=== PATIENT | male | born 1935 | race Caucasian/White ===

== ENCOUNTER 2018-03-05 10:39 | Observation (INO) ==
--- NOTE | 2018-03-05 11:04 | ED ---
HPI General Chief Complaint: Chest Pain Stated Complaint: chest tightness-lt arm x 1hr Time Seen by Provider: 03/05/18 10:48 Source: patient and family Mode of arrival: ambulatory Limitations: no limitations History of Present Illness HPI narrative: Patient presents with substernal pressure 2 out of 10 of 1 hour duration prior to arrival. Patient takes one aspirin daily. Patient also has a history of diabetes hypercholesterolemia and also had stents to his lower extremities. Generally good health with no previous cardiac history. Chest pressure resolved on arrival to emergency department. Related Data Previous Rx's Medication Instructions Recorded cephalexin [Keflex] 500 mg PO Q6H 10 Days #40 cap 03/05/18 clindamycin HCl 300 mg PO Q6H 10 Days #40 cap 03/05/18 clindamycin HCl 300 mg PO Q6H 10 Days #40 cap 03/05/18 ibuprofen 800 mg PO Q8H #100 cap 03/05/18 Allergies Allergy/AdvReac Type Severity Reaction Status Date / Time diatrizoate meglumine Allergy Mild abnormal Unverified 03/05/18 11:54 labs/kidney gadobenic acid Allergy Mild abnormal Unverified 03/05/18 11:54 labs gadodiamide Allergy Mild abnormal Unverified 03/05/18 11:54 labs gadoteridol Allergy Mild abnormal Unverified 03/05/18 11:54 labs iodixanol Allergy Mild abnormal Unverified 03/05/18 11:54 labs iohexol Allergy Mild abnormal Unverified 03/05/18 11:54 lab Review of Systems ROS: all other systems reviewed are negative PMFSH History History Provided By: Patient and Family Member Medical History Medical History Afib (Acute) Bilateral cataracts (Acute) Bladder cancer (Acute) Diabetes (Acute) Social History Social History Substance History: Active Abuse Smoking Status: Former smoker How Often Do You Have a Drink Containing Alcohol: 2 to 3 times a week Recent Travel in [facility] within the Last 8 Weeks: No Recent Out of Country Travel within the Last 8 Weeks: No Exam Narrative Exam Narrative: GENERAL: Alert and oriented in no acute distress SKIN: Focused skin assessment warm/dry. HEAD: Atraumatic. Normocephalic. EYES: Pupils equal and round. No scleral icterus. No injection or drainage. ENT: No nasal bleeding or discharge. Mucous membranes pink and moist. NECK: Trachea midline. No JVD. CARDIOVASCULAR: Regular rate and rhythm. 3 out of 6 systolic murmur second interspace right sternal border. RESPIRATORY: No accessory muscle use. Clear to auscultation. Breath sounds equal bilaterally. Crepitant rales to both bases GASTROINTESTINAL: Abdomen soft, non-tender, nondistended. Hepatic and splenic margins not palpable. MUSCULOSKELETAL: No obvious deformities. No clubbing. No cyanosis. No edema. NEUROLOGICAL: Awake and alert. No obvious cranial nerve deficits. Motor grossly within normal limits. Normal speech. PSYCHIATRIC: Appropriate mood and affect; insight and judgment normal. Procedures Abscess I/D Site: other Side (if applicable): right Anesthetic used: with epi Technique: incised with #11 blade Amount of fluid expressed (mL): 5 Packing used?: iodoform Course Initial Documented Vital Signs Temperature 97.8 F 03/05/18 10:50 Pulse Rate 75 03/05/18 10:50 Respiratory Rate 20 03/05/18 10:50 Blood Pressure 176/83 H 03/05/18 10:50 Pulse Oximetry 98 03/05/18 10:50 Last Documented Vital Signs Temperature 97.8 F 03/05/18 10:50 Pulse Rate 65 03/05/18 12:50 Respiratory Rate 20 03/05/18 12:50 Blood Pressure 139/82 03/05/18 12:50 Pulse Oximetry 96 03/05/18 12:50 Critical Care Time Critical Care Time: No Medical Decision Making MDM Narrative Medical decision making narrative: Patient presents with bug bite and secondary abscess and cellulitis to right anterior chest. No adenitis. Ultrasound shows palpable abscess that was I indeed. Patient refuses hospitalization but will be taken care of on an outpatient basis. With follow-up in 2 days with repack with iodoform at that time. There is a zone of inflammation around it but no lymphangitis. Medical Screen Exam Complete: Yes Emergency Medical Condition: Yes Medical Records Medical records reviewed: Yes I reviewed the patient's medical records. Lab Data Result diagrams: 03/05/18 11:20 03/05/18 11:20 Lab Results 03/05/18 03/05/18 03/05/18 Range/Units 11:20 11:20 11:20 CBC w Diff Auto diff final WBC 5.1 (4.0-11.0) th/mm3 RBC 4.27 L (4.50-5.90) mil/mm3 Hgb 14.2 (13.0-17.0) gm/dL Hct 41.9 (39.0-51.0) % MCV 98.3 (80.0-100.0) fL MCH 33.2 (27.0-34.0) pg MCHC 33.8 (32.0-36.0) % RDW 13.6 (11.6-17.2) % Plt Count 207 (150-450) th/mm3 MPV 8.3 (7.0-11.0) fL Neut % (Auto) 62.0 (16.0-70.0) % Lymph % (Auto) 23.7 (9.0-44.0) % [place] % (Auto) 10.7 H (0.0-8.0) % Eos % (Auto) 2.5 (0.0-4.0) % Baso % (Auto) 1.1 (0.0-2.0) % Neut # (Auto) 3.2 (1.8-7.7) th/mm3 Lymph # (Auto) 1.2 (1.0-4.8) th/mm3 [place] # (Auto) 0.5 (0.0-0.9) th/mm3 Eos # (Auto) 0.1 (0.0-0.4) th/mm3 Baso # (Auto) 0.1 (0.0-0.2) th/mm3 WBC Differential . Differential Comment . Sodium 139 (136-145) meq/L Potassium 4.6 (3.5-5.1) meq/L Chloride 103 (98-107) meq/L Carbon Dioxide 26.1 (21.0-32.0) meq/L Anion Gap 10 (5-15) meq/L BUN 27 H (7-18) mg/dL Creatinine 1.50 H (0.60-1.30) mg/dL Estimated GFR 45 L (>89) mL/min Random Glucose 256 H (74-106) mg/dL Calcium 8.0 L (8.5-10.1) mg/dL Total Creatine Kinase 146 (39-308) U/L CK-MB (CK-2) 2.0 (0.5-3.6) ng/mL Troponin I Less than 0.02 L (0.02-0.05) ng/mL B-Natriuretic Peptide 163 H (0-100) pg/mL Imaging Data Radiologist's impression: Chest X-Ray 03/05/18 10:57 CONCLUSION: Negative examination. Discharge Plan Discharge Disposition Patient Disposition: 01 Discharge Home Discharge Condition Condition: Good Discharge Order Discharge Orders: Discharge Order (Routine); Ordered 03/05/18 Ordered By: Gabriel Issa Discharge Details Diagnosis: Abscess, Cellulitis Physicians Team ED Provider: Gabriel Issa Primary Care Provider: UNKNOWN, Rxs /Orders / Referrals /Forms Prescriptions: New clindamycin HCl 300 mg capsule 300 mg PO Q6H 10 Days Qty: 40 RF: 0 clindamycin HCl 300 mg capsule 300 mg PO Q6H 10 Days Qty: 40 RF: 0 cephalexin [Keflex] 500 mg capsule 500 mg PO Q6H 10 Days Qty: 40 RF: 0 ibuprofen 200 mg capsule 800 mg PO Q8H Qty: 100 RF: 0 Discharge Instructions Patient Printed Instructions: Cellulitis (ED), Abscess (ED) Additional Instructions: Return to emergency department in 2 days for recheck and potential repacking of wound Discharge Interventions Interventions: Vital Signs Last Done: 03/05/18 12:50 Status ED Status: Ready for Discharge
--- NOTE | 2018-03-05 11:17 | XR ---
EXAM DATE: 03/05/2018 11:13 AM EST AGE/SEX: 82 years / Male INDICATIONS: . Chest pain today. CLINICAL DATA: This is the patient's initial encounter. Patient reports that signs and symptoms have been present for 1 day and indicates a pain score of 5/10. MEDICAL/SURGICAL HISTORY: Hypertension. Afib. Bladder cancer. . Removal of bladder cancer. COMPARISON: [facility], CHEST SINGLE AP, 03/28/2015. . FINDINGS: PA and lateral views of the chest demonstrate the lungs to be symmetrically aerated without evidence of mass, infiltrate or effusion. The cardiomediastinal contours are unremarkable. Osseous structures are intact. CONCLUSION: Negative examination. Electronically signed by: Jean Paul Johnson MD 03/05/2018 11:16 AM EST
[2018-03-05 11:24] LABS: Baso # (Auto) 0.1 th/mm3 (0.0-0.2); Baso % (Auto) 1.1 % (0.0-2.0); Eos # (Auto) 0.1 th/mm3 (0.0-0.4); Eos % (Auto) 2.5 % (0.0-4.0); Hematocrit 41.9 % (39.0-51.0); Hemoglobin 14.2 gm/dL (13.0-17.0); Lymph # (Auto) 1.2 th/mm3 (1.0-4.8); Lymph % (Auto) 23.7 % (9.0-44.0); Mean Corpuscular HGB Conc 33.8 % (32.0-36.0); Mean Corpuscular Hemoglobin 33.2 pg (27.0-34.0); Mean Corpuscular Volume 98.3 fL (80.0-100.0); Mean Platelet Volume 8.3 fL (7.0-11.0); Mono # (Auto) 0.5 th/mm3 (0.0-0.9); Mono % (Auto) 10.7 % (0.0-8.0); Neut # (Auto) 3.2 th/mm3 (1.8-7.7); Platelet Count 207 th/mm3 (150-450); Red Blood Count 4.27 mil/mm3 (4.50-5.90); Red Cell Distribution Width 13.6 % (11.6-17.2); White Blood Count 5.1 th/mm3 (4.0-11.0)
[2018-03-05 11:34] LABS: Chloride 103 meq/L (98-107); Potassium 4.6 meq/L (3.5-5.1); Sodium 139 meq/L (136-145)
[2018-03-05 11:37] LABS: Anion Gap 10 meq/L (5-15); Blood Urea Nitrogen 27 mg/dL (7-18); Carbon Dioxide 26.1 meq/L (21.0-32.0); Glucose,Random 256 mg/dL (74-106)
[2018-03-05 11:41] LABS: Glomerular Filtration Rate 45 mL/min (>89)
[2018-03-05 11:44] LABS: Creatine Kinase 146 U/L (39-308)
[2018-03-05] MEDS ORDERED: Dextrose 50% in Water 50 ML Vial IV.PUSH PRN (15:18)
--- NOTE | 2018-03-05 15:20 | P.HP ---
History of Present Illness Primary Care Physician: UNKNOWN Chief Complaint: Chest pain History of Present Illness: 82-year-old male with known history of hypertension, atrial fibrillation, hyperlipidemia, diabetes, peripheral vascular disease who presented to the hospital for evaluation of chest pain. Patient states that he is normal state of health until 9 AM this morning when he was sitting down and not exerting himself he developed a pain all over his anterior chest which she states was a 3/10 on a pain scale. He denied any radiation to neck, back, shoulder, arm. Denied any nausea, vomiting, shortness of breath, dyspnea, lightheadedness, dizziness. He did have some mild diaphoresis. The pain lasted for approximately 30 minutes and he decided come to the ER for evaluation. On his way to the hospital his pain subsided. Patient had workup done in emergency department and had a negative workup. It was recommended by the ER physician that the patient be observed in the chest pain center for further evaluation and management. Patient does have history of atrial fibrillation status post ablation. Patient denies any recent cardiac workup, precision assembly inspector evaluation or stress test. - Diagnosis (1) Chest pain Review of Systems All other systems reviewed negative except as stated in HPI Constitutional: Reports excessive sweating Cardiovascular: Reports chest pain PMFSH - History History Provided By: Patient - Medical History Medical History: Medical History (Last Updated 03/05/18 @ 15:13 by CASTRO Tran) Afib Bladder cancer Diabetes History of tobacco use Hyperlipidemia Hypertension Peripheral vascular disease - Surgical History Surgical History: Surgical History (Last Updated 03/05/18 @ 15:13 by CASTRO Tran) History of cataract surgery - Family History Family History: Family History (Last Updated 03/05/18 @ 15:14 by CASTRO Tran) Father Family history of stroke - Tobacco History Second Hand Smoke Exposure: No Tobacco Use In Past 30 Days: No Smoking Status: Former smoker Tobacco Type: Cigarettes - Alcohol History How Often Do You Have a Drink Containing Alcohol: 4 or more times a week - Substance Use History Substance History: No History of Abuse - Substance Use Type Alcohol Status: Active Route Used: By Mouth Frequency: daily 2-3 drinks - Travel History Recent Travel in the [place] Within the Last 8 Weeks: No Recent Travel Out of the Country Within the Last 8 Weeks: No - Immunization History Tetanus Immunization: <5 Years Medications and Allergies Active Medications: Active Medications Sodium Chloride (Ns Flush) 2 ml IV.FLUSH BID FELICIA Sodium Chloride (Ns Flush) 2 ml IV.FLUSH PRN PRN PRN Reason: FLUSH AFTER USING IV ACCESS Allergies Allergy/AdvReac Type Severity Reaction Status Date / Time diatrizoate meglumine Allergy Mild abnormal Verified 03/05/18 16:01 labs/kidney gadobenic acid Allergy Mild abnormal Verified 03/05/18 16:01 labs gadodiamide Allergy Mild abnormal Verified 03/05/18 16:01 labs gadoteridol Allergy Mild abnormal Verified 03/05/18 16:01 labs iodixanol Allergy Mild abnormal Verified 03/05/18 16:01 labs iohexol Allergy Mild abnormal Verified 03/05/18 16:01 lab Home Medications Medication Instructions Recorded Confirmed Type acetaminophen [Tylenol] 325 mg PO Q6H PRN 03/05/18 03/05/18 History atorvastatin 40 mg PO HS 03/05/18 03/05/18 History lisinopril 5 mg PO DAILY 03/05/18 03/05/18 History metformin 500 mg PO QPM 03/05/18 03/05/18 History metoprolol succinate 50 mg PO HS 03/05/18 03/05/18 History metoprolol succinate 100 mg PO DAILY 03/05/18 03/05/18 History Exam Vital signs: Vital Signs 03/05/18 10:50 03/05/18 10:57 03/05/18 11:24 Temperature 97.8 F Pulse Rate 75 72 64 Respiratory Rate 20 16 Blood Pressure 176/83 H 133/64 Pulse Oximetry 98 98 96 03/05/18 12:00 03/05/18 12:50 03/05/18 14:34 Temperature Pulse Rate 69 65 61 Respiratory Rate 17 20 20 Blood Pressure 122/66 139/82 151/84 H Pulse Oximetry 97 96 99 Intake & Output 03/04/18 03/05/18 03/05/18 18:59 06:59 18:59 Weight 87.9 kg Other: Weight On Admission 87.9 kg Narrative: GENERAL: Well-developed, well-nourished, in no acute distress. alert and orientated HEENT: Head is normocephalic without any lesions or masses noted. Facial features are symmetric. Eyes: Pupils equal round reactive to light. Extraocular muscles are intact. Conjunctivae were clear. Oropharyngeal: Pharynx without any erythema edema. Tongue is midline without deviation. Buccal mucosa is moist without any masses or lesions NECK: Supple without any masses. Trachea midline no deviation. No JVD, no bruits are appreciated CARDIAC: Regular rhythm, regular rate. S1/S2 are heard. No murmurs gallops or rubs. LUNGS: Clear to auscultation bilaterally. No wheeze, rhonchi or rales. No use of accessory muscles on inspiration or expiration. ABDOMEN: Soft, nontender. Nondistended. Bowel sounds heard in all 4 quadrants. No organomegaly or masses. Negative rebound, negative guarding EXTREMITIES: No edema, pulses are equal bilaterally. No cyanosis or clubbing NEUROLOGY: Mood and affect appear appropriate. Cranial nerves II through XII grossly intact. Muscle strength 5/5 in upper and lower extremities bilaterally. Deep tendon reflexes are 2+ in upper and lower extremities bilaterally. Results - Labs CBC & Chem 7: 03/05/18 11:20 03/06/18 11:36 Labs: Laboratory Results - last 24 hr 03/05/18 03/05/18 03/05/18 11:20 11:20 11:20 CBC w Diff Auto diff final WBC 5.1 RBC 4.27 L Hgb 14.2 Hct 41.9 MCV 98.3 MCH 33.2 MCHC 33.8 RDW 13.6 Plt Count 207 MPV 8.3 Neut % (Auto) 62.0 Lymph % (Auto) 23.7 [place] % (Auto) 10.7 H Eos % (Auto) 2.5 Baso % (Auto) 1.1 Neut # (Auto) 3.2 Lymph # (Auto) 1.2 [place] # (Auto) 0.5 Eos # (Auto) 0.1 Baso # (Auto) 0.1 WBC Differential . Differential Comment . Sodium 139 Potassium 4.6 Chloride 103 Carbon Dioxide 26.1 Anion Gap 10 BUN 27 H Creatinine 1.50 H Estimated GFR 45 L Random Glucose 256 H Calcium 8.0 L Total Creatine Kinase 146 CK-MB (CK-2) 2.0 Troponin I Less than 0.02 L B-Natriuretic Peptide 163 H - Imaging Impressions Chest X-Ray 03/05/18 10:57 CONCLUSION: Negative examination. Caprini VTE Risk Assessment Caprini VTE Risk Assessment: Moderate/High Risk (score >= 2) Caprini Risk Assessment Model: Point Value = 1 Point Value = 2 Point Value = 3 Point Value = 5 Age 41-60 Minor surgery BMI > 25 kg/m2 Swollen legs Varicose veins or History of unexplained or recurrent spontaneous Oral contraceptives or hormone replacement Sepsis (< 1 month) Serious lung disease, including pneumonia (< 1 month) Abnormal pulmonary function Acute myocardial infarction Congestive heart failure (< 1 month) History of inflammatory bowel disease Medical patient at bed rest Age 61-74 Arthroscopic surgery Major open surgery (> 45 min) Laparoscopic surgery (> 45 min) Malignancy Confined to bed (> 72 hours) Immobilizing plaster cast Central venous access Age >= 75 History of VTE Family history of VTE Factor V Leiden Prothrombin [id number] Lupus anticoagulant Anticardiolipin antibodies Elevated serum homocysteine Heparin-induced thrombocytopenia Other congenital or acquired thrombophilia Stroke (< 1 month) Elective arthroplasty Hip, pelvis, or leg fracture Acute spinal cord injury (< 1 month) Prophylaxis Regimen: Total Risk Factor Score Risk Level Prophylaxis Regimen 0-1 Low Early ambulation 2 Moderate Order ONE of the following: *Sequential Compression Device (SCD) *Heparin 5000 units SQ BID 3-4 Higher Order ONE of the following medications: *Heparin 5000 units SQ TID *Enoxaparin/Lovenox 40 mg SQ daily (WT < 150 kg, CrCl > 30 mL/min) *Enoxaparin/Lovenox 30 mg SQ daily (WT < 150 kg, CrCl > 10-29 mL/min) *Enoxaparin/Lovenox 30 mg SQ BID (WT < 150 kg, CrCl > 30 mL/min) AND/OR *Sequential Compression Device (SCD) 5 or more Highest Order ONE of the following medications: *Heparin 5000 units SQ TID (Preferred with Epidurals) *Enoxaparin/Lovenox 40 mg SQ daily (WT < 150 kg, CrCl > 30 mL/min) *Enoxaparin/Lovenox 30 mg SQ daily (WT < 150 kg, CrCl > 10-29 mL/min) *Enoxaparin/Lovenox 30 mg SQ BID (WT < 150 kg, CrCl > 30 mL/min) AND *Sequential Compression Device (SCD) Assessment and Plan - Assessment (1) Chest pain Code(s): R07.9 - Chest pain, unspecified Status: Acute - Plan Chest pain -Patient presented with risk factors to include hypertension, hyperlipidemia, peripheral vascular disease, diabetes, history of tobacco use -We will continue to rule the patient out for acute coronary event with serial cardiac enzymes -Initial EKG was performed with showed sinus rhythm without any acute abnormalities. We will continue to trend EKGs -Second set of troponins were elevated at 0.19 -Cardiac consultation was requested -Patient maximized on cardiac protection with aspirin, beta-cindy, nitroglycerin, statin -Obtain lipid panel -Further recommendations by precision assembly inspector Hypertension, hyperlipidemia -Continue monitor blood pressure -Nursing staff to obtain home medication list Diabetes -Accu-Cheks with sliding scale insulin DVT prevention -Sequential compression devices
[2018-03-05] MEDS ORDERED: Morphine Inj 4 MG/ML Vial IV.PUSH PRN (16:26)
[2018-03-05] MEDS ORDERED: Acetaminophen 500 MG Tablet PO PRN (16:26)
[2018-03-05 17:17] LABS: Troponin I 0.19 ng/mL (0.02-0.05)
[2018-03-05] MEDS: Insulin NovoLOG Aspart Correctional Sugar Inj SQ SCH ×2 (17:31→20:07)
[2018-03-05] MEDS: Sod Chloride 0.9% Inj 1,000 ML IV.SIG SCH (18:31)
[2018-03-05 20:25] LABS: Troponin I 0.36 ng/mL (0.02-0.05)
[2018-03-06] MEDS: Sod Chloride 0.9% Inj 1,000 ML IV.SIG SCH (04:59)
[2018-03-06] MEDS ORDERED: Aspirin 325 MG Tablet PO SCH ×2 (06:00→09:00)
[2018-03-06] MEDS ORDERED: Lisinopril 5 MG Tablet PO SCH ×2 (06:00→09:00)
[2018-03-06] MEDS ORDERED: Heparin/NS PF Inj 1,500 ML ONE (07:05)
[2018-03-06] MEDS ORDERED: Heparin 10,000 UNITS/10 ML Vial (for IV use) ONE (07:05)
[2018-03-06] MEDS ORDERED: MethylPREDNISolone Sod Succinate Inj 125 MG/2 ML Vial ONE (07:07)
[2018-03-06] MEDS ORDERED: Famotidine PF Inj 20 MG/2 ML Vial ONE (07:07)
[2018-03-06] MEDS ORDERED: fentaNYL Citrate Inj 100 MCG/2 ML Ampul ONE (07:29)
[2018-03-06] MEDS ORDERED: Tirofiban Inj 12,500 MCG/250 ML PLAST..BAG ONE (08:20)
[2018-03-06] MEDS ORDERED: TIROFIBAN BOLUS IV.SIG ONE (08:37)
[2018-03-06] MEDS ORDERED: Misc Info for Pharmacy OTHER STA (08:37)
--- NOTE | 2018-03-06 08:52 | CATHPROC ---
DataRPM HIS Report Study Information Study Number Admission Scheduled Start Study Start [id number] Mar 05 2018 1:36PM 03/06/2018 Mar 06 2018 6:40AM [place] [facility] Cardiac Catheterization Admit Source Facility Department Emergency department [facility] [employer] [facility] Physician and Clinical Staff Initial Denny Pak Supervisor Paint Department Tammy Robles RN Supervisor Paint Department Jose HaydenRN Recorder Yuly So RCIS Scrub Hostkuldip, Jesse,RT(R) Procedures Performed Procedure Location (Site) Vessel Name Coronary Angiograms LCA Left Coronary Coronary Angiograms RCA Right Coronary LV Gram-hand inj. LV LV Ventricle PTCA CIRC Mid CIRC Wire insertion Fem Art (right) Femoral Art Equipment Time Lute Packer Or Applier Description Size Mfg Part Number Used/Scraped TRANSDUCER, TRMANN [id number] 07:00 NOVA VILLANUEVA * Used W/STOCKCOCK *[id number] 07:45 [employer] WIRE, CHOICE PT 182CM 182CM Used *[id number] WIRE, CHOICE PT EX. SUPPORT [id number] 07:52 [employer] 180CM Used 182CM *[id number] [id number] *[id number] 538-422 *[id number] [id number] *[id number] *[id number] 07:00 [employer] BLANKET,WARM AIR CCL * Used *[id number] 07:00 [employer] PACK, CCL CUSTOM * Used *[id number] 07:00 [employer] PACER PEN, SKIN DUAL W/ RULER * Used *[id number] BALLOON, 2.5 X 12MM NC [id number] 08:13 [employer] 12MM Used EUPHORA *[id number] 08:01 [employer] BALLOON, 2.5 X 6MM EUPHORA 6MM Used *[id number] 08:13 [employer] MEDICAL 30 MIGUEL INDEFLATOR Used *[id number] 07:00 [employer] MEDICAL SHEATH, FR6.5 PRELUDE 11CM FR 6.5 038ACT Used *[id number] 07:00 [employer] MEDICAL WIRE, 3MMJ .035 180CM 180CM Used *[id number] 07:00 NAMIC MANIFOLD, 4 PORT * Used *[id number] 07:00 [employer] OMNIPAQUE, 350 MG, 150ML 150ML [id number] Used Equipment Model, Serial, Lot Number and Expiration Data Description Model Number Serial Number Lot Number Expiration Date WIRE, CHOICE PT 182CM [id number] 10-23-2019 WIRE, CHOICE PT EX. SUPPORT [id number] 12-10-2018 182CM History: Current Medications Medication Dosage/Unit Route Frequency Last Date/Time Taken ASA Statins (any) Beta Maddy History: Allergies Allergy Reaction iohexol abnormal lab diatrizoate meglumine abnormal labs/kidney gadoteridol abnormal labs gadodiamide abnormal labs iodixanol abnormal labs gadobenic acid abnormal labs History: Risk Factors Family History of Hypertension Dyslipidemia Previous MD Previous Heart Failure Premature CAD Yes Yes No No No Prior Valve Prior PCI Prior PCIDate Prior CABG Surgery No Yes 04/15/2013 No Cerebrovascular Peripheral Artery Chronic Lung On Dialysis Diabetes Diabetes Therapy Disease Disease Disease No No No No Yes Oral History: Stress Tests Stress or Imaging Studies Performed No History: MD/CV Data Previous Cath Date 04/15/2013 History: Other Current Smoker Method Quit Packs a Day Years Used Pack Years No Cigarettes 40 Years Ago 1 10 10 Labs Hgb (g/dl) Hct (%) WBC (l/cumm) Platelets (thousands) 11.60-17.00 35.00-51.00 4.00-11.00 150.00-450.00 14.0 41 5.1 207 Glucose (mg/dl) BUN (mg/dl) Creatinine (mg/dl) BUN:Creatinine (1:x) 74.00-106.00 7.00-18.00 0.50-1.30 10.00-20.00 256 27 1.5 18 Na (meq/l) K (meq/l) 136.00-145.00 3.50-5.10 139 4.6 Troponin I (ng/ml) CPK-MB (ng/ML) 0.02-0.05 0.50-3.60 0.36 Not Drawn Medication Medication Total Dose (Bolus/Oral) Medication Total Dosage/Unit AGGRASTAT BOLUS 25 mL (Bolus) BENADRYL 50 mg EFFIENT 60 mg FENTANYL 25 mcg HEPARIN 6300 units PEPCID 20 mg SOLU-MEDROL 125 mg VERSED 1 mg Medications (Bolus/Oral) Medication Time Given Dosage/Unit Administered By Reason SOLU-MEDROL 03/06/2018 7:09:19 AM 125 mg Mrache, Tammy Patient arrived on 125 mg SOLU-MEDROL given by Tammy Robles RN via Peripheral IV. BENADRYL 03/06/2018 7:11:56 AM 50 mg Tammy Robles Patient arrived on 50 mg BENADRYL given by Tammy Robles RN via Peripheral IV. PEPCID 03/06/2018 7:12:17 AM 20 mg Tammy Robles Patient arrived on 20 mg PEPCID given by Tammy Robles RN. VERSED 03/06/2018 7:32:34 AM 1 mg Tammy Robles Patient arrived on 1 mg VERSED given by Tammy Robles RN via Peripheral IV. FENTANYL 03/06/2018 7:32:40 AM 25 mcg Jose Hayden Patient arrived on 25 mcg FENTANYL given by Jose Hayden RN via Peripheral IV. HEPARIN 03/06/2018 7:45:22 AM 6300 units Jose Hayden Patient arrived on 6300 units HEPARIN given by Jose Hayden RN via Peripheral IV. AGGRASTAT BOLUS 03/06/2018 8:24:23 AM 25 mL (Bolus) Jose Hayden 25 mL (Bolus) AGGRASTAT BOLUS given in lab by Jose Hayden RN via Peripheral IV. Using [Solution Nam e]. EFFIENT 03/06/2018 8:36:45 AM 60 mg Jose Hayden 60 mg EFFIENT given in lab by Jose Hayden RN via Oral. Medication (Drip) Medication Time Given Dosage/Unit Concentration/Unit Diluent (ml) Solution AGGRASTAT DRIP 03/06/2018 8:26:02 AM 0.124 mcg/kg/min 12.5 mg 250 NaCl .9 0.124 mcg/kg/min AGGRASTAT DRIP given in lab by Jose Hayden RN via Peripheral IV. Pump/Drip Flow = 13.4 ml/hr using NaCl .9 with a concentration of 12.5 mg in 250 ml. IV Solutions 03/06/2018 7:06:25 AM 50 mL (IV) 1000 NaCl .9 Patient arrived on IV Solutions via Peripheral IV. Pump/Drip Flow using NaCl .9. Initial Case Assessment Cardiovascular HR NIBP Chest Pain 61 169/87 0 Edema Present Skin color Skin None Normal Warm Dry Circulatory - Right Pulses Dorsalis Pedis Femoral 3 3 Scale (0,1,2,3,4,d) Circulatory - Left Pulses Dorsalis Pedis Femoral 3 3 Scale (0,1,2,3,4,d) Neurological State Oriented to time-place- Alert Moves all extremities person Respiration - General Respiration Rate (B/min) 12 Chronological Log Time Study Chronological Log 6:58:07 Patient arrived via Bed. 6:58:09 Patient Name, D.O.B, / Armband Verified By R.N. 6:58:11 Consent signed by the physician and the patient and verified by the [facility] [employer] [facility] staff. 6:58:14 Patient has been NPO for More than 6Hrs. 6:58:15 Skin Breakdown- none 7:05:52 A # 20 IV was noted in the Antecubital (left). Grade = 0 Vitals capture started with the following parameters, Patient=Adult, Interval=5 min, Initial Pr rijfvk=833 mmHg, 7:06:13 Deflation Rate=5 mmHg, Cuff placed on Left Arm 7:06:25 Patient arrived on IV Solutions via Peripheral IV. Pump/Drip Flow using NaCl .9. 7:07:35 HR=60 bpm, TENI=000/87 mmhg, SpO2=94.0 %, Resp=12 B/min, Pain=0, Seble=10, Valenzuela=2 Assessment: Initial Case, HR=61 BPM, SHVC=946/87 mmhg, Chest Pain=0, Edema=None, Color=Normal, Skin = Warm, Dry Right Pulses: Isaiah Ped=3, Femoral=3 7:08:23 Left Pulses: Isaiah Ped=3, Femoral=3 Neurological: State=Alert, Ox3, WILSON Respiration: Resp=12 B/min 7:09:19 Patient arrived on 125 mg SOLU-MEDROL given by Tammy Robles, LOGAN via Peripheral IV. 7:11:56 Patient arrived on 50 mg BENADRYL given by Tammy Robles, LOGAN via Peripheral IV. 7:12:17 Patient arrived on 20 mg PEPCID given by Tammy Robles, LOGAN. 7:12:28 HR=63 bpm, SHVV=070/91 mmhg, SpO2=97.0 %, Resp=15 B/min, Pain=0, Seble=10, Valenzuela=2 7:12:52 Reference ECG taken 7:13:42 Right groin prepped with 2% chlorhexidine, and draped after a 3 min. waiting time. 7:17:00 HR=63 bpm, IFAE=457/91 mmhg, SpO2=99.0 %, Resp=13 B/min, Pain=0, Seble=10, Valenzuela=2 7:21:06 Pressure channel 1 zeroed. 7:22:05 HR=66 bpm, QUUI=813/84 mmhg, SpO2=95.0 %, Resp=16 B/min, Pain=0, Seble=10, Valenzuela=2 7:27:00 HR=61 bpm, NGJI=328/89 mmhg, SpO2=95 %, Resp=16 B/min, Pain=0, Seble=10, Valenzuela=2 7:28:33 MD arrived. 7:31:57 HR=62 bpm, ZEZZ=563/91 mmhg, SpO2=95.0 %, Resp=17 B/min, Pain=0, Seble=10, Valenzuela=2 7:32:10 Case Start Time Out. Correct patient, correct procedure, correct physician, labs, allergies, and equipment verified with civil laboratory technician 7:32:11 team present. Fire risk assesment completed (see hard stop sheet for coding). Time Out Concu rred by MD and individual staff in procedure. 7:32:34 Patient arrived on 1 mg VERSED given by Tammy Robles, RN via Peripheral IV. 7:32:40 Patient arrived on 25 mcg FENTANYL given by Jose Hayden, RN via Peripheral IV. 7:33:55 Access site was Right Femoral Artery. 7:34:12 A SHEATH, FR6.5 PRELUDE 11CM FR 6.5 was advanced into the Fem Art (right) using the ~TECHNIQ UE~ technique. A JR 4.0 INFINITI CATHETER FR 4 was advanced over a wire. OMNIPAQUE, 350 MG, 150ML 150ML was use d for 7:34:33 injections. 7:34:41 A WIRE, 3MMJ .035 180CM 180CM was inserted via Fem Art (right). 7:34:46 Wire removed Recorded Pressure: LV, HR=62, Condition=Condition 1 7:35:56 (Left Ventricle) LV 194/9/28 7:36:20 The LV was manually injected with 10 cc's and visualized. OMNIPAQUE, 350 MG, 150ML 150ML use d. Recorded Pressure: LV, Ao, HR=63, Condition=Condition 1 7:36:29 (Left Ventricle) LV ?/?/?, (Aorta) Ao 183/84/125 7:36:48 The RCA was injected and visualized at various angles. OMNIPAQUE, 350 MG, 150ML 150ML used. 7:37:00 HR=63 bpm, WTNI=427/88 mmhg, SpO2=96.0 %, Resp=13 B/min, Pain=0, Seble=10, Valenzuela=2 Recorded Pressure: Ao, HR=63, Condition=Condition 1 7:37:13 (Aorta) Ao 165/82/115 After removing the current catheter a JL 5.0 INFINITI CATHETER FR 4 was advanced over a WIRE, 3M MJ .035 180CM 7:37:56 180CM. 7:39:42 The LCA was injected and visualized at various angles. OMNIPAQUE, 350 MG, 150ML 150ML used. 7:41:59 HR=65 bpm, QYSS=398/88 mmhg, SpO2=92.0 %, Resp=16 B/min, Pain=0, Seble=10, Valenzuela=2 After removing the current catheter a XB 4.5 GUIDE CATHETER FR 6 was advanced over a WIRE, 3MMJ .035 180CM 7:44:21 180CM. 7:45:22 Patient arrived on 6300 units HEPARIN given by Jose Hayden RN via Peripheral IV. 7:47:03 HR=65 bpm, YTBX=983/86 mmhg, SpO2=95.0 %, Resp=15 B/min, Pain=0, Seble=10, Valenzuela=2 7:48:00 A WIRE, CHOICE PT 182CM 182CM was inserted via Fem Art (right). 7:51:15 Interventional wire has crossed the lesion 7:51:27 Activated Clotting Time Drawn 7:52:02 HR=65 bpm, RUYW=041/85 mmhg, SpO2=94.0 %, Resp=19 B/min, Pain=0, Seble=10, Valenzuela=2 7:53:21 A WIRE, CHOICE PT EX. SUPPORT 182CM 180CM was inserted via Fem Art (right). FOR ADDITIONAL S UPPORT 7:57:01 HR=61 bpm, OAEV=843/82 mmhg, SpO2=96.0 %, Resp=13 B/min, Pain=0, Seble=10, Valenzuela=2 7:57:31 ACT (Normal Range 90-180) = 337 8:02:04 HR=60 bpm, JYGZ=908/89 mmhg, SpO2=95.0 %, Resp=13 B/min, Pain=0, Seble=10, Valenzuela=2 8:02:18 Wire removed PT FLOPPY 8:04:40 A BALLOON, 2.5 X 6MM EUPHORA 6MM was inserted over WIRE, CHOICE PT 182CM 182CM via the CIRC Mid. 8:07:05 HR=59 bpm, JXIY=673/87 mmhg, SpO2=94.0 %, Resp=16 B/min, Pain=0, Seble=10, Valenzuela=2 8:12:04 HR=60 bpm, FROM=918/89 mmhg, SpO2=94.0 %, Resp=16 B/min, Pain=0, Seble=10, Valenzuela=2 A BALLOON, 2.5 X 6MM EUPHORA 6MM over a WIRE, CHOICE PT 182CM 182CM in the CIRC Mid was inflate d using a 8:12:23 30 MIGUEL INDEFLATOR at 8 miguel for 20 sec. 8:13:10 Balloon Removed. 8:15:30 A BALLOON, 2.5 X 12MM NC EUPHORA 12MM was inserted over WIRE, CHOICE PT 182CM 182CM via the CIRC Mid. A BALLOON, 2.5 X 12MM NC EUPHORA 12MM over a WIRE, CHOICE PT 182CM 182CM in the CIRC Mid was in flated 8:16:24 using a 30 MIGUEL INDEFLATOR at 8 miguel for 15 sec. A BALLOON, 2.5 X 12MM NC EUPHORA 12MM over a WIRE, CHOICE PT 182CM 182CM in the CIRC Mid was in flated 8:16:43 using a 30 MIGUEL INDEFLATOR at 15 miguel for 15 sec. 8:17:07 HR=60 bpm, NUMP=714/89 mmhg, SpO2=96.0 %, Resp=13 B/min, Pain=0, Seble=10, Valenzuela=2 8:19:21 Balloon Removed. 8:19:57 Case End (Physician broke scrub) 8:20:54 In the Fem Art (right) the SHEATH, FR6.5 PRELUDE 11CM FR 6.[address] by Jesse Acharya RT(R). 8:22:10 HR=63 bpm, HQOR=061/96 mmhg, SpO2=96.0 %, Resp=12 B/min, Pain=0, Seble=10, Valenzuela=2 8:22:55 Sterile dressing applied to site 8:22:57 No case complications noted. 8:23:06 Bedside Report will be given. 8:23:15 A Left and Right Heart Cath was performed. 8:24:23 25 mL (Bolus) AGGRASTAT BOLUS given in lab by Jose Hayden RN via Peripheral IV. Using [So lution Name]. 0.124 mcg/kg/min AGGRASTAT DRIP given in lab by Jose Hayden RN via Peripheral IV. Pump/Drip F low = 13.4 ml/hr 8:26:02 using NaCl .9 with a concentration of 12.5 mg in 250 ml. 8:27:09 HR=62 bpm, JJYN=035/95 mmhg, SpO2=95.0 %, Resp=13 B/min, Pain=0, Seble=10, Valenzuela=2 8:28:05 Vitals capture stopped. 8:28:40 ACT (Normal Range 90-180) = 310 8:36:45 60 mg EFFIENT given in lab by Jose Hayden RN via Oral. 8:40:03 Patient moved to [facility] End Study - Contrast Media Used In Study Contrast Total Opened (mL) Total Used (mL) Total Wasted (mL) Omnipaque 200 200 0 End Study - Maximum Contrast Load Max Contrast Load (mL) 298.9 End Study - Radiation Exposure Fluoro Time (minutes) 22.6 End Study - Patient Disposition Complications Transferred To Interventional Outcome No Telemetry Bed successful
[2018-03-06] MEDS ORDERED: Tirofiban Inj 12,500 MCG/250 ML PLAST..BAG IV.CONT SCH (09:00)
--- NOTE | 2018-03-06 09:22 | MA ---
cc: Denny Bansal MD DATE: 03/06/2018 PROCEDURE PERFORMED: Left heart catheterization, left heart coronary angiography, percutaneous transluminal PTCA coronary angioplasty of mid left circumflex vessel. INDICATION: Non-STEMI, coronary artery disease. PROCEDURE IN DETAIL: The patient was brought to the cardiac catheterization laboratory, prepped and draped in the usual sterile fashion. Then, 10 mL of 1% lidocaine was used for local anesthetic effect to the left femoral artery. A 4-Rwandan sheath was placed in right common femoral artery. A 4-Rwandan JR4 and JL5 diagnostic catheters were used to perform left and right coronary angiography, left ventriculography. FINDINGS: LV pressure is 200/12/13, EF 60%. The right coronary artery was calcified throughout most of its length fluoroscopically. There is mild to moderate diffuse disease up to 50% angiographically in the mid segment. Reference vessel diameter in the proximal segment is 4.0 mm. The right PDA and right SRAVANI are large, and have no significant disease. The reference vessel diameter are 3.5 mm. Left main coronary artery is long. There is mild distal disease, up to 20% angiographically. LAD is heavily calcified in the mid segment. It is a transapical vessel. It has 50% stenosis at the bifurcation with the second diagonal artery. It does span the ostium of this diagonal artery and this diagonal artery itself has a 80% to 90% ostial stenosis with a very proximal bifurcation. The more medial branch has a mid to distal 90% stenosis just proximal to bifurcation. Reference vessel diameter 2.5. More lateral branch has no significant disease. The first diagonal artery is a small to medium sized vessel, reference vessel diameter to 2.25 to 2.5 with a proximal tapering versus some degree of stenosis, but no significant focal stenosis beyond maybe 20%. The LAD is transapical. The left circumflex vessel has an ostial 70% stenosis. Extremely tortuous in its segment. Just beyond this lesion, there is a 160-degree bend, followed by a 110-degree bend in the opposite direction. This supplies beyond the second bend a medium to large obtuse marginal vessel, reference vessel diameter of at least 3 mm with a long ostial proximal 50% stenosis. The AV groove, left circumflex has a long 80% stenosis beyond this vessel, and supplies 2 small posterolateral arteries. DISCUSSION: It is not clear whether the culprit lesion is the diagonal vessel and the ostium versus the medial branch or the AV groove left circumflex, as the diagonal was a relatively small vessel, and has an ostial lesion off the large LAD, I did not think risk/benefit ratio favored attempted PCI of this vessel. The patient has a troponin that is continuing to increase. I suspect the most likely culprit is possibly the lesions in series in the left circumflex vessel beginning with a 70% ostial lesion, and then followed by the 80% to 90% mid AV groove left circumflex vessel stenosis, which is a long lesion. Suspect possibility of these lesions in series may be causing the patient's chest pain at rest and elevated troponin. The lesion off the left main and the left circ is a very high risk lesion, given its tortuosity and extension back into the left main. Therefore, again, I do not think risk/benefit ratio favors attempt at PCI of this segment of this vessel. The patient was given 70 units per kg of heparin. A 6-Rwandan sheath exchanged for a 7-Rwandan sheath. ACT was 330. We used a 6-Rwandan XB 4.5 guide, and then I used a 0.014 ChoICE PT floppy wire in an attempt to cross the mid AV groove lesser circ stenosis; however, due to the extreme vessel tortuosity as detailed above, I was not able to position the wire in the distal left circ. I then used a 0.014 extra support floppy ChoICE PT wire, and again was not able to position this wire into the distal left circumflex. Both wires continuously went into the first obtuse marginal vessel. I then removed the regular ChoICE PT floppy wire, put a much more acute bend on the tip, and again had difficulty even crossing the proximal circumflex tortuosity. We then used a 2.564 balloon to calender let off helper directing the wire tip into the mid left circumflex. Again, it was very difficult to push the wire beyond the first obtuse marginal vessel, even with balloon support and using the balloon to help straighten out the wire tip. I then was finally able to cross the first obtuse marginal vessel, but then the wire tip continuously went into the second obtuse marginal vessel. Finally, I advanced the balloon past the first obtuse marginal vessel, and was able to advance the wire into the distal left circ. We did an inflation with a 2.56 Compliant E4 balloon, one inflation at 8 atmospheres for 20 seconds at the bifurcation with the second obtuse marginal vessel. The balloon watermelon seeded. I then used a 2.5, 12 Noncompliant E4 balloon, one inflation of 8 atmospheres for 20 seconds. There was not significant enough improvement in vessel stenosis. Therefore, I used the same balloon in the same position, inflated to 15 atmospheres for 20 seconds. Stenosis went from 90% to a residual 30%. Given the extreme tortuosity of the vessel and extreme difficulty of wiring the vessel, and extreme noncompliance of the vessel, I was very concerned about pulling a stent there, which certainly may have resulted in suboptimal deployment, and risk for stent thrombosis, and given the difficult access, did not feel risk/benefit ratio favored attempted stent delivery, not to mention that, given the extreme tortuosity, even with a martina wire, I think the ability to deliver a stent of more than 8 mm or even 8 mm would be very difficult. Therefore, further attempts at intervention were stopped at that point in time. The patient was chest pain free at the end of the procedure. His blood pressure increased from 165-200 after the vessel was opened. CONCLUSION: 1. Bqb-QI-moaslgeoc myocardial infarction, possible culprit lesion of 70% ostial left circumflex, followed by 80% to 90% mid AV groove left circumflex in series versus alternatively or simultaneously the ostial second diagonal vessel stenosis, and/or the medial branches of the second diagonal vessel stenosis. 2. Successful PTCA of the mid AV groove circumflex from 80% to residual 30% with JOAN 3 flow. 3. Recommend Effient 60 mg p.o. load, then 10 mg daily for a total of 15 months. 4. Aspirin 162 mg daily. 5. Aggrastat drip. 6. Will treat lipids, NCEP guidelines. 7. Treat with beta blockers and VONNIE inhibitors, as hemodynamically and clinically tolerated. MD LINO Sahu/rh , 08:35 AM , 08:51 AM
--- NOTE | 2018-03-06 09:36 | MB ---
cc: Denny Bansal MD DATE: 03/06/2018 HISTORY OF PRESENT ILLNESS: Mina is a very pleasant 82-year-old gentleman, who recently moved here permanently from [place]. He had been followed by wheel filler in [place] for rhythm management. Yesterday, he developed chest pain, came to the [facility], and was found to have elevated troponin. Currently, he is resting in no apparent acute distress. Denies any fever, chills, cough, GI or bleeding, PND, orthopnea or dizziness or current ongoing chest pain. PAST MEDICAL HISTORY: Per history of present illness. He has a history of diabetes, hyperlipidemia, peripheral vascular disease, status post stents in the lower extremity; history of atrial fibrillation, bilateral cataracts, bladder cancer. SOCIAL HISTORY: Former smoker. Drinks alcohol 2-3 times a week. ALLERGIES: IOHEXOL, DIATRIZOATE, MEGLUMINE, GADOTERIDOL, GADODIAMIDE, IODIXANOL, GADOBENIC ACID. CURRENT MEDICATIONS IN THE HOSPITAL: 1. Aspirin 325 daily. 2. Atorvastatin 40 mg at bedtime. 3. Insulin. 4. Lisinopril 5 mg daily. 5. Toprol-XL 100 mg daily. PHYSICAL EXAMINATION: VITAL SIGNS: Pulse 66, blood pressure 156/89, respiratory rate 16, temperature 98.2. GENERAL: He is alert and oriented x3, in no acute distress. NECK: Supple. No JVD or bruit. CARDIOVASCULAR: S1, S2. No murmurs, rubs, gallops. LUNGS: Clear to auscultation bilaterally. ABDOMEN: Soft, nontender, nondistended with positive bowel sounds. EXTREMITIES: No lower extremity edema. LABORATORY DATA: Sodium 139, potassium 4.6, chloride 103, bicarbonate 26.1, BUN 27, creatinine 1.50. Troponins less than 0.02 on admission, followed by 0.19, 0.36. BNP is 163. White count 5.1, hemoglobin 14.2, hematocrit 41.9, platelet count 207. DIAGNOSTIC DATA: EKG: Normal sinus rhythm at 71 beats per minute, nonspecific ST-T wave changes. Chest x-ray negative. DIAGNOSES: 1. Wwm-BS-xqtjmubzs myocardial infarction. 2. Decompensated congestive heart failure. 3. Hypertension. 4. Diabetes mellitus. 5. Peripheral vascular disease. 6. Chronic renal insufficiency. 7. Hyperglycemia. 8. Acute renal failure. DISCUSSION: The patient has been prehydrated with 2 liters of normal saline prior to catheterization. Due to his non-STEMI, resting chest pain, [place] Cardiovascular Society class IV angina, diabetes, peripheral vascular disease, advanced age, male gender, multiple cardiac risk factors, I do think that a left heart catheterization is urgently indicated. The patient will be pretreated for his DYE ALLERGY with 125 mg of IV Solu-Medrol, 50 mg of IV Benadryl, 20 mg of IV Pepcid. Continue aspirin, Toprol, lisinopril, and atorvastatin 40 at bedtime. Further recommendations based on the details of his catheterization report. Denny Bansal MD AWC/ , 08:44 AM , 08:53 AM
[2018-03-06] MEDS ORDERED: amLODIPine 5 MG Tablet PO ONE (10:00)
[2018-03-06] MEDS: Insulin NovoLOG Aspart Correctional Sugar Inj SQ SCH ×4 (10:11→21:13)
--- NOTE | 2018-03-06 12:02 | P.PN ---
Subjective Interval history: Follow-up non-ST elevation March 06, 2018-seen and examined, denies any chest pain shortness. s/p LHC without any stent placement Physical Exam Vital signs: Vital Signs 03/05/18 12:00 03/05/18 12:50 03/05/18 14:34 Temperature Pulse Rate 69 65 61 Respiratory Rate 17 20 20 Blood Pressure 122/66 139/82 151/84 H Pulse Oximetry 97 96 99 03/05/18 15:15 03/05/18 20:00 03/05/18 20:01 Temperature 96.3 F L 96.9 F L Pulse Rate 65 65 63 Respiratory Rate 20 Blood Pressure 144/82 H 160/88 H Pulse Oximetry 98 93 L 03/05/18 22:30 03/05/18 22:39 03/05/18 23:00 Temperature 98.2 F Pulse Rate 63 60 71 Respiratory Rate 16 Blood Pressure 170/94 H Pulse Oximetry 98 03/05/18 23:35 03/06/18 00:00 03/06/18 01:00 Temperature Pulse Rate 75 58 L 58 L Respiratory Rate 16 Blood Pressure 168/88 H Pulse Oximetry 95 03/06/18 02:00 03/06/18 03:00 03/06/18 03:39 Temperature Pulse Rate 64 61 66 Respiratory Rate 16 Blood Pressure 156/89 H Pulse Oximetry 95 03/06/18 04:00 03/06/18 05:00 03/06/18 06:00 Temperature Pulse Rate 58 L 64 68 Respiratory Rate Blood Pressure Pulse Oximetry 03/06/18 10:00 Temperature Pulse Rate Respiratory Rate Blood Pressure Pulse Oximetry 92 L Intake & Output 03/05/18 03/06/18 03/06/18 18:59 06:59 18:59 Intake Total 480 / 480 1240 / 1240 Balance 480 / 480 1240 / 1240 Weight 87.9 kg 89.7 kg Intake: IV 1000 / 1000 NS Inj 1,000 ML @ 100 mls/hr IV 1000 / 1000 .SIG .Q10H FELICIA Rx#:[id number] Oral 480 / 480 240 / 240 Other: # Voids 2 1 Date of Last Bowel Movement 03/05/18 03/05/18 03/05/18 # Bowel Movements 0 0 Weight On Admission 87.9 kg Narrative: GENERAL: Well-developed, well-nourished, in no acute distress. alert and orientated HEENT: Head is normocephalic without any lesions or masses noted. Facial features are symmetric. Eyes: Pupils equal round reactive to light. Extraocular muscles are intact. Conjunctivae were clear. Oropharyngeal: Pharynx without any erythema edema. Tongue is midline without deviation. Buccal mucosa is moist without any masses or lesions NECK: Supple without any masses. Trachea midline no deviation. No JVD, no bruits are appreciated CARDIAC: Regular rhythm, regular rate. S1/S2 are heard. No murmurs gallops or rubs. LUNGS: Clear to auscultation bilaterally. No wheeze, rhonchi or rales. No use of accessory muscles on inspiration or expiration. ABDOMEN: Soft, nontender. Nondistended. Bowel sounds heard in all 4 quadrants. No organomegaly or masses. Negative rebound, negative guarding EXTREMITIES: No edema, pulses are equal bilaterally. No cyanosis or clubbing NEUROLOGY: Mood and affect appear appropriate. Cranial nerves II through XII grossly intact. Muscle strength 5/5 in upper and lower extremities bilaterally. Deep tendon reflexes are 2+ in upper and lower extremities bilaterally. Results - Labs CBC & Chem 7: 03/05/18 11:20 03/05/18 11:20 Laboratory Results - last 24 hr 03/05/18 03/05/18 03/05/18 16:38 16:40 19:50 POC Glucose 120 H Total Creatine Kinase 115 108 Troponin I 0.19 H 0.36 H 03/05/18 20:07 POC Glucose 127 H Total Creatine Kinase Troponin I Assessment and Plan - Assessment (1) Chest pain Code(s): R07.9 - Chest pain, unspecified Status: Acute - Plan 82-year-old man with Non-ST elevation [place] s/p left heart catheterization without stent placement Currently on Effient 10mg daily, Toprol XL, Lisinopril 5mg daily, Statin Lipid profile pending 2D echo pending Appreciate input from cardiology Hypertension Continue with Toprol Xl, VONNIE-I Hyperlipidemia Continue statin Diabetes type 2 Currently on insulin sliding scale Continue to hold metformin Acute kidney injury Continue gentle IV fluid hydration Monitor BUN and creatinine Avoid all nephrotoxic drug
[2018-03-06 12:18] LABS: INR 1.1 Ratio; Prothrombin Time 11.4 sec (9.8-11.6)
[2018-03-06 12:41] LABS: Calcium 7.6 mg/dL (8.5-10.1); Carbon Dioxide 22.9 meq/L (21.0-32.0); Potassium 4.6 meq/L (3.5-5.1)
[2018-03-06 12:46] LABS: Chol/HDL Ratio 2.88 Ratio; HDL Cholesterol 54.4 mg/dL (40.0-60.0)
--- NOTE | 2018-03-06 23:15 | ECG ---
Date Performed: 03/05/2018 Time Performed: 19:47:32 PTAGE: 82 years EKG: Sinus rhythm BORDERLINE LEFT AXIS DEVIATION NONSPECIFIC T-WAVE ABNORMALITY BORDERLINE ECG PREVIOUS TRACING : 03/05/2018 16.52 Since the previous tracing, no significant change noted DOCTOR: Orlando Mccartney Interpretating Date/Time 03/06/2018 23:13:35
[2018-03-07 06:54] LABS: Baso % (Auto) 0.1 % (0.0-2.0); Hematocrit 33.1 % (39.0-51.0); Hemoglobin 11.8 gm/dL (13.0-17.0); Lymph # (Auto) 0.5 th/mm3 (1.0-4.8); Mean Corpuscular HGB Conc 35.5 % (32.0-36.0); Mean Corpuscular Hemoglobin 34.7 pg (27.0-34.0); Mean Corpuscular Volume 97.8 fL (80.0-100.0); Mean Platelet Volume 8.7 fL (7.0-11.0); Mono # (Auto) 0.6 th/mm3 (0.0-0.9); Mono % (Auto) 8.3 % (0.0-8.0); Neut # (Auto) 5.6 th/mm3 (1.8-7.7); Neut % (Auto) 83.6 % (16.0-70.0); Platelet Count 165 th/mm3 (150-450); Red Blood Count 3.39 mil/mm3 (4.50-5.90); Red Cell Distribution Width 13.7 % (11.6-17.2); White Blood Count 6.7 th/mm3 (4.0-11.0)
--- NOTE | 2018-03-07 07:12 | ECG ---
Date Performed: 03/05/2018 Time Performed: 16:52:44 PTAGE: 82 years EKG: SINUS BRADYCARDIA BORDERLINE LEFT AXIS DEVIATION MINIMAL VOLTAGE CRITERIA FOR LVH, CONSIDER NORMAL VARIANT NONSPECIFIC T-WAVE ABNORMALITY BORDERLINE ECG PREVIOUS TRACING : 03/05/2018 10.43 Since the previous tracing, no significant change noted DOCTOR: Orlando Mccartney Interpretating Date/Time 03/07/2018 07:12:45
--- NOTE | 2018-03-07 07:38 | ECG ---
Date Performed: 03/05/2018 Time Performed: 10:43:20 PTAGE: 82 years EKG: Sinus rhythm NONSPECIFIC ST & T-WAVE ABNORMALITY BORDERLINE ECG PREVIOUS TRACING : 03/28/2015 12.44 Since the previous tracing, no significant change noted DOCTOR: Orlando Mccartney Interpretating Date/Time 03/07/2018 07:37:49
[2018-03-07] MEDS ORDERED: Aspirin 325 MG Tablet PO SCH (09:00)
[2018-03-07] MEDS ORDERED: Lisinopril 5 MG Tablet PO SCH (09:00)
[2018-03-07] MEDS ORDERED: amLODIPine 5 MG Tablet PO SCH (09:00)
[2018-03-07] MEDS: Insulin NovoLOG Aspart Correctional Sugar Inj SQ SCH ×2 (09:06→11:53)
--- NOTE | 2018-03-07 11:39 | P.PN ---
Subjective Interval history: Follow-up non-ST elevation March 06, 2018-seen and examined, denies any chest pain shortness. s/p LHC without any stent placement March 07, 2018-patient seen and examined, stable and no complaint. No CP/ dizziness/SOB Physical Exam Vital signs: Vital Signs 03/06/18 12:00 03/06/18 13:00 03/06/18 14:00 Temperature 98.1 F Pulse Rate 62 76 80 Respiratory Rate 16 Blood Pressure 156/69 H Pulse Oximetry 94 L 03/06/18 15:00 03/06/18 16:00 03/06/18 17:00 Temperature 98.0 F Pulse Rate 82 80 88 Respiratory Rate 16 Blood Pressure 145/87 H Pulse Oximetry 94 L 03/06/18 18:00 03/06/18 19:00 03/06/18 20:00 Temperature 97.4 F L Pulse Rate 86 95 H 97 H Respiratory Rate 20 Blood Pressure 171/102 H Pulse Oximetry 93 L 03/06/18 21:00 03/06/18 21:15 03/06/18 22:00 Temperature Pulse Rate 85 86 Respiratory Rate Blood Pressure 124/82 Pulse Oximetry 92 L 03/06/18 23:00 03/07/18 00:00 03/07/18 01:00 Temperature 97.7 F Pulse Rate 74 84 63 Respiratory Rate 22 Blood Pressure 158/82 H Pulse Oximetry 96 03/07/18 02:00 03/07/18 03:00 03/07/18 04:00 Temperature 97.7 F Pulse Rate 79 72 78 Respiratory Rate 16 20 Blood Pressure 130/81 Pulse Oximetry 95 03/07/18 05:00 03/07/18 06:00 03/07/18 07:35 Temperature 97.4 F L Pulse Rate 70 87 71 Respiratory Rate 18 Blood Pressure 146/92 H Pulse Oximetry 98 Intake & Output 03/06/18 03/07/18 03/07/18 18:59 06:59 18:59 Intake Total 1740 / 1740 490 / 490 Output Total 1300 / 1300 Balance 440 / 440 490 / 490 Weight 89.6 kg Intake: IV 600 / 600 250 / 250 NS Inj 1,000 ML @ 100 mls/hr IV 600 / 600 .SIG .Q10H FELICIA Rx#:[id number] Oral 1140 / 1140 240 / 240 Output: Urine 1300 / 1300 Other: # Voids 3 Date of Last Bowel Movement 03/05/18 03/05/18 03/05/18 Narrative: GENERAL: Well-developed, well-nourished, in no acute distress. alert and orientated HEENT: Head is normocephalic without any lesions or masses noted. Facial features are symmetric. Eyes: Pupils equal round reactive to light. Extraocular muscles are intact. Conjunctivae were clear. Oropharyngeal: Pharynx without any erythema edema. Tongue is midline without deviation. Buccal mucosa is moist without any masses or lesions NECK: Supple without any masses. Trachea midline no deviation. No JVD, no bruits are appreciated CARDIAC: Regular rhythm, regular rate. S1/S2 are heard. No murmurs gallops or rubs. LUNGS: Clear to auscultation bilaterally. No wheeze, rhonchi or rales. No use of accessory muscles on inspiration or expiration. ABDOMEN: Soft, nontender. Nondistended. Bowel sounds heard in all 4 quadrants. No organomegaly or masses. Negative rebound, negative guarding EXTREMITIES: No edema, pulses are equal bilaterally. No cyanosis or clubbing NEUROLOGY: Mood and affect appear appropriate. Cranial nerves II through XII grossly intact. Muscle strength 5/5 in upper and lower extremities bilaterally. Deep tendon reflexes are 2+ in upper and lower extremities bilaterally. Results - Labs CBC & Chem 7: 03/07/18 05:19 03/06/18 11:36 Laboratory Results - last 24 hr 03/06/18 03/06/18 03/06/18 11:36 11:36 11:36 WBC RBC Hgb Hct MCV MCH MCHC RDW Plt Count MPV Neut % (Auto) Lymph % (Auto) [place] % (Auto) Eos % (Auto) Baso % (Auto) Neut # (Auto) Lymph # (Auto) [place] # (Auto) Eos # (Auto) Baso # (Auto) WBC Differential Differential Comment PT 11.4 INR 1.1 Sodium 139 Potassium 4.6 Chloride 108 H Carbon Dioxide 22.9 Anion Gap 8 BUN 20 H Creatinine 1.10 Estimated GFR 64 L POC Glucose Random Glucose 187 H Calcium 7.6 L Total Creatine Kinase Triglycerides 91 Cholesterol 157 LDL Cholesterol, Calc 84 HDL Cholesterol 54.4 Cholesterol/HDL Ratio 2.88 03/06/18 03/06/18 03/06/18 12:02 16:52 20:38 WBC RBC Hgb Hct MCV MCH MCHC RDW Plt Count MPV Neut % (Auto) Lymph % (Auto) [place] % (Auto) Eos % (Auto) Baso % (Auto) Neut # (Auto) Lymph # (Auto) [place] # (Auto) Eos # (Auto) Baso # (Auto) WBC Differential Differential Comment PT INR Sodium Potassium Chloride Carbon Dioxide Anion Gap BUN Creatinine Estimated GFR POC Glucose 198 H 269 H 275 H Random Glucose Calcium Total Creatine Kinase Triglycerides Cholesterol LDL Cholesterol, Calc HDL Cholesterol Cholesterol/HDL Ratio 03/07/18 03/07/18 03/07/18 05:19 05:19 07:40 WBC 6.7 RBC 3.39 L Hgb 11.8 L D Hct 33.1 L MCV 97.8 MCH 34.7 H MCHC 35.5 RDW 13.7 Plt Count 165 MPV 8.7 Neut % (Auto) 83.6 H Lymph % (Auto) 8.0 L [place] % (Auto) 8.3 H Eos % (Auto) 0.0 Baso % (Auto) 0.1 Neut # (Auto) 5.6 Lymph # (Auto) 0.5 L [place] # (Auto) 0.6 Eos # (Auto) 0.0 Baso # (Auto) 0.0 WBC Differential . Differential Comment Auto diff final PT INR Sodium Potassium Chloride Carbon Dioxide Anion Gap BUN Creatinine Estimated GFR POC Glucose 178 H Random Glucose Calcium Total Creatine Kinase 119 Triglycerides Cholesterol LDL Cholesterol, Calc HDL Cholesterol Cholesterol/HDL Ratio 03/07/18 11:19 WBC RBC Hgb Hct MCV MCH MCHC RDW Plt Count MPV Neut % (Auto) Lymph % (Auto) [place] % (Auto) Eos % (Auto) Baso % (Auto) Neut # (Auto) Lymph # (Auto) [place] # (Auto) Eos # (Auto) Baso # (Auto) WBC Differential Differential Comment PT INR Sodium Potassium Chloride Carbon Dioxide Anion Gap BUN Creatinine Estimated GFR POC Glucose 149 H Random Glucose Calcium Total Creatine Kinase Triglycerides Cholesterol LDL Cholesterol, Calc HDL Cholesterol Cholesterol/HDL Ratio - Procedures see cath report Assessment and Plan - Assessment (1) Chest pain Code(s): R07.9 - Chest pain, unspecified Status: Acute - Plan 82-year-old man with Non-ST elevation [place] s/p left heart catheterization without stent placement Currently on Effient 10mg daily, Toprol XL, Lisinopril 5mg daily, Statin Appreciate input from cardiology Hypertension Continue with Toprol Xl, VONNIE-I Hyperlipidemia Continue statin Diabetes type 2 Currently on insulin sliding scale Continue to hold metformin Acute kidney injury Improved with gentle IV fluid hydration Monitor BUN and creatinine Avoid all nephrotoxic drug
--- NOTE | 2018-03-07 11:40 | P.DS ---
Date of admission: 03/05/18 13:36 Primary care physician: UNKNOWN Brief History from admission: 82-year-old male with known history of hypertension, atrial fibrillation, hyperlipidemia, diabetes, peripheral vascular disease who presented to the hospital for evaluation of chest pain. Patient states that he is normal state of health until 9 AM this morning when he was sitting down and not exerting himself he developed a pain all over his anterior chest which she states was a 3/10 on a pain scale. He denied any radiation to neck, back, shoulder, arm. Denied any nausea, vomiting, shortness of breath, dyspnea, lightheadedness, dizziness. He did have some mild diaphoresis. The pain lasted for approximately 30 minutes and he decided come to the ER for evaluation. On his way to the hospital his pain subsided. Patient had workup done in emergency department and had a negative workup. It was recommended by the ER physician that the patient be observed in the chest pain center for further evaluation and management. Patient does have history of atrial fibrillation status post ablation. 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 DS: Diagnosis - Discharge Diagnosis (1) Chest pain Status: Acute DS: Summary Hospital Course: While in the hospital, patient was treated for: Non-ST elevation ID s/p left heart catheterization without stent placement Treated with Effient 10mg daily, Toprol XL, Lisinopril 5mg daily, Statin Appreciate input from cardiology Hypertension Treated with Toprol Xl, VONNIE-I Hyperlipidemia Treated with statin Diabetes type 2 Currently on insulin sliding scale Resume metformin upon discharge Acute kidney injury Improved with gentle IV fluid hydration Monitor BUN and creatinine Avoid all nephrotoxic drug - Time Spent with Patient Total time spent providing and/or coordinating discharge services: Less than 30 minutes - Quality: VTE Deep Vein Thrombosis/Pulmonary Embolism Present on Admission: No Exam Vital signs: Vital Signs 03/06/18 12:00 03/06/18 13:00 03/06/18 14:00 Temperature 98.1 F Pulse Rate 62 76 80 Respiratory Rate 16 Blood Pressure 156/69 H Pulse Oximetry 94 L 03/06/18 15:00 03/06/18 16:00 03/06/18 17:00 Temperature 98.0 F Pulse Rate 82 80 88 Respiratory Rate 16 Blood Pressure 145/87 H Pulse Oximetry 94 L 03/06/18 18:00 03/06/18 19:00 03/06/18 20:00 Temperature 97.4 F L Pulse Rate 86 95 H 97 H Respiratory Rate 20 Blood Pressure 171/102 H Pulse Oximetry 93 L 03/06/18 21:00 03/06/18 21:15 03/06/18 22:00 Temperature Pulse Rate 85 86 Respiratory Rate Blood Pressure 124/82 Pulse Oximetry 92 L 03/06/18 23:00 03/07/18 00:00 03/07/18 01:00 Temperature 97.7 F Pulse Rate 74 84 63 Respiratory Rate 22 Blood Pressure 158/82 H Pulse Oximetry 96 03/07/18 02:00 03/07/18 03:00 03/07/18 04:00 Temperature 97.7 F Pulse Rate 79 72 78 Respiratory Rate 16 20 Blood Pressure 130/81 Pulse Oximetry 95 03/07/18 05:00 03/07/18 06:00 03/07/18 07:35 Temperature 97.4 F L Pulse Rate 70 87 71 Respiratory Rate 18 Blood Pressure 146/92 H Pulse Oximetry 98 Intake & Output 03/06/18 03/07/18 03/07/18 18:59 06:59 18:59 Intake Total 1740 / 1740 490 / 490 Output Total 1300 / 1300 Balance 440 / 440 490 / 490 Weight 89.6 kg Intake: IV 600 / 600 250 / 250 NS Inj 1,000 ML @ 100 mls/hr IV 600 / 600 .SIG .Q10H FELICIA Rx#:[id number] Oral 1140 / 1140 240 / 240 Output: Urine 1300 / 1300 Other: # Voids 3 Date of Last Bowel Movement 03/05/18 03/05/18 03/05/18 Results Procedures completed during hospitalization: see cath report Labs on day of discharge: Labs from last 24 hours 03/07/18 03/07/18 03/07/18 11:19 07:40 05:19 WBC RBC Hgb Hct MCV MCH MCHC RDW Plt Count MPV Neut % (Auto) Lymph % (Auto) [place] % (Auto) Eos % (Auto) Baso % (Auto) Neut # (Auto) Lymph # (Auto) [place] # (Auto) Eos # (Auto) Baso # (Auto) WBC Differential Differential Comment PT INR Sodium Potassium Chloride Carbon Dioxide Anion Gap BUN Creatinine Estimated GFR POC Glucose 149 H 178 H Random Glucose Calcium Total Creatine Kinase 119 Triglycerides Cholesterol LDL Cholesterol, Calc HDL Cholesterol Cholesterol/HDL Ratio 11/23/18 11/22/18 11/22/18 05:19 20:38 16:52 WBC 6.7 RBC 3.39 L Hgb 11.8 L D Hct 33.1 L MCV 97.8 MCH 34.7 H MCHC 35.5 RDW 13.7 Plt Count 165 MPV 8.7 Neut % (Auto) 83.6 H Lymph % (Auto) 8.0 L [place] % (Auto) 8.3 H Eos % (Auto) 0.0 Baso % (Auto) 0.1 Neut # (Auto) 5.6 Lymph # (Auto) 0.5 L [place] # (Auto) 0.6 Eos # (Auto) 0.0 Baso # (Auto) 0.0 WBC Differential . Differential Comment Auto diff final PT INR Sodium Potassium Chloride Carbon Dioxide Anion Gap BUN Creatinine Estimated GFR POC Glucose 275 H 269 H Random Glucose Calcium Total Creatine Kinase Triglycerides Cholesterol LDL Cholesterol, Calc HDL Cholesterol Cholesterol/HDL Ratio 03/06/18 03/06/18 03/06/18 12:02 11:36 11:36 WBC RBC Hgb Hct MCV MCH MCHC RDW Plt Count MPV Neut % (Auto) Lymph % (Auto) [place] % (Auto) Eos % (Auto) Baso % (Auto) Neut # (Auto) Lymph # (Auto) [place] # (Auto) Eos # (Auto) Baso # (Auto) WBC Differential Differential Comment PT 11.4 INR 1.1 Sodium 139 Potassium 4.6 Chloride 108 H Carbon Dioxide 22.9 Anion Gap 8 BUN 20 H Creatinine 1.10 Estimated GFR 64 L POC Glucose 198 H Random Glucose 187 H Calcium 7.6 L Total Creatine Kinase Triglycerides Cholesterol LDL Cholesterol, Calc HDL Cholesterol Cholesterol/HDL Ratio 03/06/18 11:36 WBC RBC Hgb Hct MCV MCH MCHC RDW Plt Count MPV Neut % (Auto) Lymph % (Auto) [place] % (Auto) Eos % (Auto) Baso % (Auto) Neut # (Auto) Lymph # (Auto) [place] # (Auto) Eos # (Auto) Baso # (Auto) WBC Differential Differential Comment PT INR Sodium Potassium Chloride Carbon Dioxide Anion Gap BUN Creatinine Estimated GFR POC Glucose Random Glucose Calcium Total Creatine Kinase Triglycerides 91 Cholesterol 157 LDL Cholesterol, Calc 84 HDL Cholesterol 54.4 Cholesterol/HDL Ratio 2.88 - Impressions ITS Impressions Chest X-Ray 03/05/18 10:57 CONCLUSION: Negative examination. Discharge Plan - Discharge Disposition Patient Disposition: 01 Discharge Home - Discharge Condition Condition: Good - Discharge Order Discharge Orders: Discharge Order (Routine); Ordered 03/07/18 Ordered By: González Harry - Physicians Team Primary Care Provider: UNKNOWN, Attending Provider: González Harry Other Providers: Denny Bansal MD
[2018-03-07] MEDS ORDERED: Iohexol 350 MG/ML 100 ML Vial (for Cath Lab) IVCONTRAST ONE (16:01)
--- NOTE | 2018-03-07 18:47 | P.PNCA ---
Subjective Interval history: assymptomatic, feels better in nad Medications and Allergies Active Medications: Active Medications Acetaminophen (Tylenol) 500 mg PO Q4H PRN PRN Reason: HEADACHE Hydrocodone Bitart/Acetaminophen ([place] 7.5/325) 1 tab PO Q4H PRN PRN Reason: PAIN SCALE 1 TO 7 Amlodipine Besylate (Norvasc) 5 mg PO DAILY [facility] Last Admin: 03/07/18 09:08 Dose: 5 mg Aspirin (Ecotrin) 162 mg PO DAILY [facility] Last Admin: 03/07/18 09:08 Dose: 162 mg Atorvastatin Calcium (Lipitor) 40 mg PO HS [facility] Last Admin: 03/06/18 21:13 Dose: 40 mg Dextrose (D50w Vial) 50 ml IV.PUSH UNSCH PRN PRN Reason: PER HYPOGLYCEMIA PROTOCOL Glucagon (Glucagon Inj) 1 mg OTHER PRN PRN PRN Reason: for Hypoglycemia Protocol Tirofiban/Sodium Chloride (Aggrastat Inj) 12,500 mcg in 250 mls @ 0 mls/hr IV.CONT .Q0M [facility]; Protocol Insulin Aspart (Novolog Insulin [place] Sugar Inj) 0 unit SQ ACHS [facility]; Protocol Last Admin: 03/07/18 11:53 Dose: Not Given Lisinopril (Prinivil) 5 mg PO DAILY [facility] Last Admin: 03/07/18 09:08 Dose: 5 mg Metoprolol Succinate (Toprol Xl) 100 mg PO DAILY [facility] Last Admin: 03/07/18 09:08 Dose: 100 mg Morphine Sulfate (Morphine Inj) 2 mg IV.PUSH Q4H PRN PRN Reason: PAIN SCALE 8 TO 10 Nitroglycerin (Nitrostat Sl) 0.4 mg SL Q5M PRN PRN Reason: CHEST PAIN Nitroglycerin (Nitro-Bid 2% Oint) 0.5 inch TOPICAL Q6HR [facility] Last Admin: 03/07/18 11:53 Dose: Not Given Prasugrel (Effient) 10 mg PO DAILY [facility] Last Admin: 03/07/18 09:07 Dose: 10 mg Sodium Chloride (Ns Flush) 2 ml IV.FLUSH BID [facility] Last Admin: 03/07/18 09:08 Dose: 2 ml Sodium Chloride (Ns Flush) 2 ml IV.FLUSH PRN PRN PRN Reason: FLUSH AFTER USING IV ACCESS Sodium Chloride (Ns Flush) 2 ml IV.FLUSH BID [facility] Last Admin: 03/07/18 09:09 Dose: Not Given Sodium Chloride (Ns Flush) 2 ml IV.FLUSH PRN PRN PRN Reason: FLUSH AFTER USING IV ACCESS Allergies Allergy/AdvReac Type Severity Reaction Status Date / Time diatrizoate meglumine Allergy Mild abnormal Verified 03/05/18 16:01 labs/kidney gadobenic acid Allergy Mild abnormal Verified 03/05/18 16:01 labs gadodiamide Allergy Mild abnormal Verified 03/05/18 16:01 labs gadoteridol Allergy Mild abnormal Verified 03/05/18 16:01 labs iodixanol Allergy Mild abnormal Verified 03/05/18 16:01 labs iohexol Allergy Mild abnormal Verified 03/05/18 16:01 lab Home Medications Medication Instructions Recorded Confirmed Type acetaminophen [Tylenol] 325 mg PO Q6H PRN 03/05/18 03/05/18 History atorvastatin 40 mg PO HS 03/05/18 03/05/18 History lisinopril 5 mg PO DAILY 03/05/18 03/05/18 History metformin 500 mg PO QPM 03/05/18 03/05/18 History metoprolol succinate 50 mg PO HS 03/05/18 03/05/18 History metoprolol succinate 100 mg PO DAILY 03/05/18 03/05/18 History Physical Exam Vital signs: Vital Signs 03/06/18 19:00 03/06/18 20:00 03/06/18 21:00 Temperature 97.4 F L Pulse Rate 95 H 97 H 85 Respiratory Rate 20 Blood Pressure 171/102 H 124/82 Pulse Oximetry 93 L 03/06/18 21:15 03/06/18 22:00 03/06/18 23:00 Temperature Pulse Rate 86 74 Respiratory Rate Blood Pressure Pulse Oximetry 92 L 03/07/18 00:00 03/07/18 01:00 03/07/18 02:00 Temperature 97.7 F Pulse Rate 84 63 79 Respiratory Rate 22 Blood Pressure 158/82 H Pulse Oximetry 96 03/07/18 03:00 03/07/18 04:00 03/07/18 05:00 Temperature 97.7 F Pulse Rate 72 78 70 Respiratory Rate 16 20 Blood Pressure 130/81 Pulse Oximetry 95 03/07/18 06:00 03/07/18 07:00 03/07/18 07:35 Temperature 97.4 F L Pulse Rate 87 68 71 Respiratory Rate 18 Blood Pressure 146/92 H Pulse Oximetry 98 03/07/18 08:00 03/07/18 09:00 03/07/18 10:00 Temperature Pulse Rate 76 70 60 Respiratory Rate Blood Pressure Pulse Oximetry 98 03/07/18 11:00 03/07/18 11:57 03/07/18 12:00 Temperature 97.2 F L Pulse Rate 63 62 Respiratory Rate 16 Blood Pressure 142/75 H Pulse Oximetry 95 97 03/07/18 13:00 03/07/18 14:00 Temperature Pulse Rate 78 76 Respiratory Rate Blood Pressure Pulse Oximetry Intake & Output 03/06/18 03/07/18 03/07/18 18:59 06:59 18:59 Intake Total 1740 / 1740 490 / 490 Output Total 1300 / 1300 Balance 440 / 440 490 / 490 Weight 89.6 kg Intake: IV 600 / 600 250 / 250 NS Inj 1,000 ML @ 100 mls/hr IV 600 / 600 .SIG .Q10H FELICIA Rx#:[id number] Oral 1140 / 1140 240 / 240 Output: Urine 1300 / 1300 Other: # Voids 3 Date of Last Bowel Movement 03/05/18 03/05/18 03/05/18 - Constitutional no acute distress - Routine HEENT Exam Head: Present: normocephalic - Routine Neck Exam Present: supple - Routine Respiratory Exam Present: CTA bilaterally - Routine Cardiovascular Exam Present: S1, S2 - Routine Abdominal Exam Present: soft - Routine Extremities Exam Comments: no rui Results 03/07/18 05:19 03/06/18 11:36 Cardiac Enzymes 03/05/18 Range/Units 19:50 Troponin I 0.36 H (0.02-0.05) ng/mL Coagulation 03/06/18 Range/Units 11:36 PT 11.4 (9.8-11.6) sec Lipids 03/06/18 Range/Units 11:36 Triglycerides 91 (42-150) mg/dL Cholesterol 157 (120-200) mg/dL HDL Cholesterol 54.4 (40.0-60.0) mg/dL Cholesterol/HDL Ratio 2.88 Ratio CBC 03/07/18 Range/Units 05:19 WBC 6.7 (4.0-11.0) th/mm3 RBC 3.39 L (4.50-5.90) mil/mm3 Hgb 11.8 L D (13.0-17.0) gm/dL Hct 33.1 L (39.0-51.0) % Plt Count 165 (150-450) th/mm3 Neut # (Auto) 5.6 (1.8-7.7) th/mm3 Lymph # (Auto) 0.5 L (1.0-4.8) th/mm3 [place] # (Auto) 0.6 (0.0-0.9) th/mm3 Eos # (Auto) 0.0 (0.0-0.4) th/mm3 Baso # (Auto) 0.0 (0.0-0.2) th/mm3 Comprehensive Metabolic Panel 03/06/18 Range/Units 11:36 Sodium 139 (136-145) meq/L Potassium 4.6 (3.5-5.1) meq/L Chloride 108 H (98-107) meq/L Carbon Dioxide 22.9 (21.0-32.0) meq/L BUN 20 H (7-18) mg/dL Creatinine 1.10 (0.60-1.30) mg/dL Calcium 7.6 L (8.5-10.1) mg/dL Intake and Output 03/07/18 03/07/18 03/07/18 06:59 14:59 22:59 Intake Total 490 / 490 Balance 490 / 490 Intake: IV 250 / 250 Oral 240 / 240 Other: # Voids 3 Date of Last Bowel Movement 03/05/18 03/05/18 Weight 89.6 kg Assessment and Plan - Assessment (1) NSTEMI (non-ST elevated myocardial infarction) Code(s): I21.4 - Non-ST elevation (NSTEMI) myocardial infarction Status: Acute (2) CAD (coronary artery disease) Code(s): I25.10 - Atherosclerotic heart disease of [place] coronary artery without angina pectoris Status: Acute (3) Chest pain Code(s): R07.9 - Chest pain, unspecified Status: Acute - Plan 1.) CAD - pod # 1 ptca mid lcx, assympomatic, ok to dc on aspirin 162 mg qd, effient 10 mg qd, coreg 3.125 mg bid, altace 2. mg qd, i advised patient to call my office [place] to schedule appointment and be compliant with dapt or risk life threatening myocardial infarction, he understands and agrees, nurse present
== END 2018-03-07 16:02 | disposition home or self-care (01) ==
LOC: PHED 10:39 → PHEDA 10:39 → PH3 14:42 → HCIS 22:16
PROVIDERS: ADMIT Hospitalist; ATTEND Hospitalist
DX: Z79.82 Long term (current) use of aspirin; I21.4 Non-ST elevation (NSTEMI) myocardial infarction; Z82.3 Family history of stroke; L03.90 Cellulitis, unspecified; N17.9 Acute kidney failure, unspecified; I13.0 Hypertensive heart and chronic kidney disease with heart failure and stage 1 through stage 4 chronic kidney disease, or unspecified chronic kidney disease; Z87.891 Personal history of nicotine dependence; Z79.4 Long term (current) use of insulin; E11.65 Type 2 diabetes mellitus with hyperglycemia; I48.91 Unspecified atrial fibrillation; Z95.820 Peripheral vascular angioplasty status with implants and grafts; E78.5 Hyperlipidemia, unspecified; I25.10 Atherosclerotic heart disease of native coronary artery without angina pectoris; E78.00 Pure hypercholesterolemia, unspecified; Z91.041 Radiographic dye allergy status; Z85.51 Personal history of malignant neoplasm of bladder; I50.9 Heart failure, unspecified; N18.9 Chronic kidney disease, unspecified